=== PATIENT | female | born 1970 | race Caucasian/White ===

== ENCOUNTER 2018-07-06 18:52 | Emergency (ER) | payer MEDICAID, OTHER ==
[~2018-07-06] VITALS: Ht 157.5 cm; Wt 98.5 kg
[~2018-07-06 18:52] MED LIST: ACYC-114 PO; BUPR100T11 PO; CHOL200074 PO; FERR325T18 PO; FLUT16SP NS; GABA-826 PO; LOSA50TA14 PO; RAME8TAB19 PO
[2018-07-06 18:59] VITALS: BP 140/113
--- NOTE | 2018-07-06 19:17 | NUR ---
MD TO BEDSIDE FOR ASSESSMENT
[2018-07-06] MEDS ORDERED: HYDROcodone/APAP 5/325 TABLET ONE (19:18)
--- NOTE | 2018-07-06 19:20 | NUR ---
PT TAKEN TO RAD
[2018-07-06] MEDS ORDERED: HYDROcodone/APAP 5/325 TABLET PO PRN (19:30)
--- NOTE | 2018-07-06 19:31 | NUR ---
BACK FROM IMAGING, MEDICATED PER MAR. FAMILY AT BEDSIDE. CALL LIGHT WITHIN REACH
--- NOTE | 2018-07-06 19:41 | NUR ---
ALL RESULTS BACK AT THIS TIME, CHART UP FOR RECHECK
== END 2018-07-06 20:10 | disposition home or self-care (01) ==
LOC: ED 20:00
DX: S06.0X0A Concussion without loss of consciousness, initial encounter (principal); F17.200 Nicotine dependence, unspecified, uncomplicated; W01.0XXA Fall on same level from slipping, tripping and stumbling without subsequent striking against object, initial encounter; Y93.89 Activity, other specified; Y92.488 Other paved roadways as the place of occurrence of the external cause; Y99.8 Other external cause status
CPT/HCPCS: 70450; 72125; 99284

== ENCOUNTER → 2018-09-18 | Outpatient (CLI) | payer OTHER | END | disposition home or self-care (01) | LOC: CFH 11:28 | PROVIDERS: ATTEND Family Medicine | DX: Z12.31 Encounter for screening mammogram for malignant neoplasm of breast (principal); Z88.8 Allergy status to other drugs, medicaments and biological substances | CPT/HCPCS: 77063; 77067 ==

== ENCOUNTER → 2020-03-09 | Outpatient (CLI) | payer OTHER ==
[~2020-03-09] MED LIST changes: -FLUT16SP NS; +FLUT16SP24 NS
== END | disposition home or self-care (01) ==
LOC: CFH 15:07
PROVIDERS: ATTEND Family Medicine
DX: Z12.31 Encounter for screening mammogram for malignant neoplasm of breast (principal)
CPT/HCPCS: 77063; 77067

== ENCOUNTER 2020-04-03 19:54 | Emergency (ER) | payer OTHER ==
[~2020-04-03] VITALS: Ht 157.5 cm; Wt 95.3 kg
--- NOTE | 2020-04-03 20:33 | NUR ---
ERP TO BEDSIDE. PT SITTING IN BED, CONNECTED TO CARDIAC, BP AND O2 MONITORS. NADN. VSS. AWAITING ORDERS.
[2020-04-03] MEDS ORDERED: ACETAMINOPHEN 325 MG TABLET ONE (21:45)
[2020-04-03] MEDS ORDERED: ONDANSETRON ODT 4 MG ONE (21:45)
[2020-04-03 21:57] VITALS: BP 126/82
[2020-04-03] MEDS ORDERED: ONDANSETRON ODT 4 MG PO ONE (22:00)
[2020-04-03] MEDS ORDERED: ACETAMINOPHEN 325 MG TABLET PO ONE (22:00)
== END 2020-04-03 21:59 | disposition home or self-care (01) ==
LOC: ED 20:43
DX: B34.9 Viral infection, unspecified (principal); R06.02 Shortness of breath; Z20.828 Contact with and (suspected) exposure to other viral communicable diseases; R07.9 Chest pain, unspecified; R51.9 Headache, unspecified; F17.210 Nicotine dependence, cigarettes, uncomplicated
CPT/HCPCS: 71045; 87635; 99284; 99406; Q0162